=== PATIENT | male | born 1995 | race Caucasian/White ===

== ENCOUNTER 2019-04-03 20:44 | Emergency (ER) | payer OTHER ==
[2019-04-03] MEDS ORDERED: Sodium Chloride 0.9% 2.5 ML Syringe FLUSH PRN (21:13)
[2019-04-03] MEDS ORDERED: Ondansetron 4 MG/2 ML SDV IVPUSH ONE (21:13)
[2019-04-03] MEDS ORDERED: Pantoprazole 40 MG Vial IVPUSH ONE (21:13)
[2019-04-03] MEDS ORDERED: Sodium Chloride 0.9% 1,000 ML IV ONE (21:13)
[2019-04-03] MEDS ORDERED: Sodium Chloride 0.9% 10 ML Syringe FLUSH PRN (21:13)
[2019-04-03] MEDS ORDERED: Alum Hydrox/Mag Hydrox/Simeth 15 ML, Metoclopramide 5 MG, Lidocaine 2% 5 ML PO ONE ×3 (21:14)
--- NOTE | 2019-04-03 21:18 | EDM.PDOC ---
ED HPI GENERAL MEDICAL PROBLEM - General Chief Complaint: Gastrointestinal Problem Stated Complaint: PUKING BLOOD Time Seen by Provider: 04/03/19 21:07 - History of Present Illness INITIAL COMMENTS - FREE TEXT/NARRATIVE: HISTORY AND PHYSICAL: History of present illness: The patient is a 23-year-old male with no GI history and no abdominal surgical history who presents with complaints of several episodes of vomiting after drinking alcohol tonight. The patient admits that he drinks on a nightly basis and intermittently will have abdominal pain but has never vomited with blood. This evening he was drinking whiskey and on his second or third drink he had an episode of vomiting which was not black or bloody and then the second had blood in it and the third had some dark stuff. Currently he doesn't feel nauseated and has no abdominal pain. He has no chest pain or shortness of breath and says he had a normal day earlier without any systemic issues. He has not had black or bloody stools and has no diarrhea. The patient also admitted that he did "a little cocaine" but doesn't do it on a regular basis. He is not lightheaded dizzy. He does admits that he drinks caffeinated products during the day and eats a lot of spicy foods. He has never been evaluated for abdominal problems. Review of systems: As per history of present illness and below otherwise all systems reviewed and negative. Past medical history: As per history of present illness and as reviewed below otherwise noncontributory. Surgical history: As per history of present illness and as reviewed below otherwise noncontributory. Social history: No reported history of drug or alcohol abuse. Family history: As per history of present illness and as reviewed below otherwise noncontributory. Physical exam: General: Well-developed well-nourished man who is nontoxic and vital signs are noted by me. Patient is speaking clearly and easily in the ED and exhibits no distress. HEENT: Atraumatic, normocephalic, pupils reactive, negative for conjunctival pallor or scleral icterus, mucous membranes moist, throat clear, neck supple, nontender, trachea midline. Lungs: Clear to auscultation, breath sounds equal bilaterally, chest nontender. Heart: S1S2, regular, negative for clicks, rubs, or JVD. Abdomen: Soft, nondistended, nontender. Negative for masses or hepatosplenomegaly. Negative for costovertebral tenderness. On deep palpation of the upper abdomen there is actually no tenderness rebound or guarding and bowel sounds are normoactive Pelvis: Stable nontender. Genitourinary: Deferred. Rectal: Deferred. Extremities: Atraumatic, negative for cords or calf pain. Neurovascular unremarkable. Neuro: Awake, alert, oriented. Cranial nerves II through XII unremarkable. Cerebellum unremarkable. Motor and sensory unremarkable throughout. Exam nonfocal. Diagnostics: CBC CMP INR amylase lipase Therapeutics: IV fluids Zofran and Protonix GI cocktail Repeat heart rate is in the 70s and we are currently awaiting the remainder of his test results for disposition Testing results were discussed with the patient and I will give him Protonix for home but I did caution him to try to avoid irritating liquids such as alcohol and caffeine as well as reduce food intake of spicy foods and I've advised follow-up as he may need endoscopy going forward if he continues to have symptoms. Impression: Alcohol gastritis with episode of hematemesis stable Definitive disposition and diagnosis as appropriate pending reevaluation and review of above. - Related Data Allergies Allergy/AdvReac Type Severity Reaction Status Date / Time No Known Allergies Allergy Verified 04/03/19 20:53 Home Meds: Home Meds . [No Known Home Meds] 04/03/19 [History] Past Medical History - Past Health History Medical/Surgical History: Denies Medical/Surgical History - Infectious Disease History Infectious Disease History: Reports: Chicken Pox Social & Family History - Family History Family Medical History: Noncontributory - Tobacco Use Smoking Status *Q: Current Every Day Smoker Years of Tobacco use: 10 Packs/Tins Daily: 0.5 - Caffeine Use Caffeine Use: Reports: Energy Drinks - Recreational Drug Use Recreational Drug Use: Yes Drug Use in Last 12 Months: Yes Recreational Drug Type: Reports: Cocaine, Marijuana/Hashish Other Recreational Drug Type: Last used marijuana a couple days ago. Last used cocaine today. Recreational Drug Use Frequency: Weekly ED ROS GENERAL - Review of Systems Review Of Systems: ROS reveals no pertinent complaints other than HPI. ED EXAM, GENERAL - Physical Exam Exam: See Below (See dictation) Course - Vital Signs Last Recorded V/S: Last Vital Signs Temp 36.6 C 04/03/19 20:53 Pulse 78 04/03/19 22:00 Resp 17 04/03/19 20:53 BP 157/91 H 04/03/19 22:00 Pulse Ox 98 04/03/19 22:00 - Orders/Labs/Meds Orders: Active Orders 24 hr Category Date Time Status Sodium Chloride 0.9% [Saline Flush] Med 04/03/19 21:13 Active 10 ml FLUSH ASDIRECTED PRN Sodium Chloride 0.9% [Saline Flush] Med 04/03/19 21:13 Active 2.5 ml FLUSH ASDIRECTED PRN Saline Lock Insert [OM.PC] Stat Oth 04/03/19 21:13 Ordered Medication Orders Sodium Chloride (Saline Flush) 10 ml FLUSH ASDIRECTED PRN PRN Reason: Keep Vein Open Last Admin: 04/03/19 21:57 Dose: 10 ml Sodium Chloride (Saline Flush) 2.5 ml FLUSH ASDIRECTED PRN PRN Reason: Keep Vein Open Last Admin: 04/03/19 21:57 Dose: 2.5 ml Labs: Laboratory Tests 04/03/19 04/03/19 04/03/19 Range/Units 21:43 21:43 21:43 WBC 7.96 (4.0-11.0) K/uL RBC 5.12 (4.50-5.90) M/uL Hgb 15.3 (13.0-17.0) g/dL Hct 44.9 (38.0-50.0) % MCV 87.7 (80.0-98.0) fL MCH 29.9 (27.0-32.0) pg MCHC 34.1 (31.0-37.0) g/dL RDW Std Deviation 41.3 (28.0-62.0) fl RDW Coeff of Lanette 13 (11.0-15.0) % Plt Count 233 (150-400) K/uL MPV 10.20 (7.40-12.00) fL Neut % (Auto) 59.4 (48.0-80.0) % Lymph % (Auto) 31.5 (16.0-40.0) % [place] % (Auto) 7.4 (0.0-15.0) % Eos % (Auto) 1.4 (0.0-7.0) % Baso % (Auto) 0.3 (0.0-1.5) % Neut # (Auto) 4.7 (1.4-5.7) K/uL Lymph # (Auto) 2.5 H (0.6-2.4) K/uL [place] # (Auto) 0.6 (0.0-0.8) K/uL Eos # (Auto) 0.1 (0.0-0.7) K/uL Baso # (Auto) 0.0 (0.0-0.1) K/uL Nucleated RBC % 0.0 /100WBC Nucleated RBCs # 0 K/uL INR 0.96 Sodium 142 (136-148) mmol/L Potassium 3.3 L (3.5-5.1) mmol/L Chloride 103 (98-107) mmol/L Carbon Dioxide 28.8 (21.0-32.0) mmol/L BUN 11 (7.0-18.0) mg/dL Creatinine 1.1 (0.8-1.3) mg/dL Est Cr Clr Drug Dosing 112.68 mL/min Estimated GFR (MDRD) > 60.0 ml/min Glucose 99 (74-106) mg/dL Calcium 9.1 (8.5-10.1) mg/dL Total Bilirubin 0.3 (0.2-1.0) mg/dL AST 30 (15-37) IU/L ALT 26 (14-63) IU/L Alkaline Phosphatase 93 (46-116) U/L Total Protein 7.9 (6.4-8.2) g/dL Albumin 4.1 (3.4-5.0) g/dL Globulin 3.8 (2.6-4.0) g/dL Albumin/Globulin Ratio 1.1 (0.9-1.6) Amylase 29 (25-115) U/L Lipase 99 (73-393) U/L Meds: Medications Generic Name Dose Route Start Last Admin Trade Name Freq PRN Reason Stop Dose Admin Sodium Chloride 10 ml 04/03/19 21:13 04/03/19 21:57 Saline Flush FLUSH 10 ml ASDIRECTED PRN Administration Keep Vein Open Sodium Chloride 2.5 ml 04/03/19 21:13 04/03/19 21:57 Saline Flush FLUSH 2.5 ml ASDIRECTED PRN Administration Keep Vein Open Discontinued Medications Generic Name Dose Route Start Last Admin Trade Name Freq PRN Reason Stop Dose Admin Al Hydroxide/Mg Hydroxide 15 0 ml 04/03/19 21:14 04/03/19 21:58 ml/ Metoclopramide HCl 5 mg/ PO 04/03/19 21:15 1 each Lidocaine HCl 5 ml ONETIME ONE Administration Sodium Chloride 1,000 mls @ 999 mls/hr 04/03/19 21:13 04/03/19 21:43 Normal Saline IV 04/03/19 22:13 999 mls/hr STAT ONE Administration Sodium Chloride Confirm 04/03/19 21:34 Normal Saline Administered 04/03/19 21:35 Dose 20 mls @ as directed .ROUTE .STK-MED ONE Ondansetron HCl 4 mg 04/03/19 21:13 04/03/19 21:43 Zofran IVPUSH 04/03/19 21:14 4 mg ONETIME ONE Administration Pantoprazole Sodium 80 mg 04/03/19 21:13 04/03/19 21:48 Protonix Iv IVPUSH 04/03/19 21:14 80 mg .BOLUS ONE Administration Departure - Departure Time of Disposition: 22:33 Disposition: Home, Self-Care 01 Condition: Good Clinical Impression: Acute alcoholic gastritis Qualifiers: Gastritis bleeding: with bleeding Qualified Code(s): K29.21 - Alcoholic gastritis with bleeding - Discharge Information Referrals: PCP,None [Primary Care Provider] - Forms: ED Department Discharge Additional Instructions: The following information is given to patients seen in the emergency department who are being discharged to home. This information is to outline your options for follow-up care. We provide all patients seen in our emergency department with a follow-up referral. The need for follow-up, as well as the timing and circumstances, are variable depending upon the specifics of your emergency department visit. If you don't have a primary care physician on staff, we will provide you with a referral. We always advise you to contact your personal physician following an emergency department visit to inform them of the circumstance of the visit and for follow-up with them and/or the need for any referrals to a consulting specialist. The emergency department will also refer you to a specialist when appropriate. This referral assures that you have the opportunity for followup care with a specialist. All of these measure are taken in an effort to provide you with optimal care, which includes your followup. Under all circumstances we always encourage you to contact your private physician who remains a resource for coordinating your care. When calling for followup care, please make the office aware that this follow-up is from your recent emergency room visit. If for any reason you are refused follow-up, please contact the [facility] emergency department at and ask to speak to the emergency department charge nurse. [facility] Primary care- Internal Medicine and Family [facility] [address] [place] [id number] [facility] Specialty Care-General Surgery Professional Building [address] [facility] [address] [place] [address] Push hydration and avoid caffeinated products alcohol as well as spicy foods as all of these substances irritate your stomach and he wanted to give yourself some time to heal. Use the Protonix you have been prescribed daily as well as Zofran as needed for nausea and vomiting. Please call and schedule a follow-up appointment with primary care or with our surgeons if these symptoms persist for further testing and care. Return to ER as needed and as discussed - My Orders Last 24 Hours: My Active Orders 04/03/19 21:13 Sodium Chloride 0.9% [Saline Flush] 10 ml FLUSH ASDIRECTED PRN Sodium Chloride 0.9% [Saline Flush] 2.5 ml FLUSH ASDIRECTED PRN Saline Lock Insert [OM.PC] Stat - Assessment/Plan Last 24 Hours: My Active Orders 04/03/19 21:13 Sodium Chloride 0.9% [Saline Flush] 10 ml FLUSH ASDIRECTED PRN Sodium Chloride 0.9% [Saline Flush] 2.5 ml FLUSH ASDIRECTED PRN Saline Lock Insert [OM.PC] Stat
[2019-04-03] MEDS ORDERED: Sodium Chloride 0.9% 20 ML ONE (21:34)
[2019-04-03 22:27] LABS: BLOOD UREA NITROGEN,BUN 11 mg/dL (7.0-18.0); CARBON DIOXIDE,CO2 28.8 mmol/L (21.0-32.0); CHLORIDE,CL 103 mmol/L (98-107); GLUCOSE RANDOM 99 mg/dL (74-106); LIPASE 99 U/L (73-393); POTASSIUM,K 3.3 mmol/L (3.5-5.1); SODIUM,NA 142 mmol/L (136-148)
[2019-04-03 22:29] VITALS: BP 157/91; PULSE 78
== END 2019-04-03 22:58 | disposition home or self-care (01) ==
LOC: MW.ED 20:44
DX: K29.21 Alcoholic gastritis with bleeding (principal); K92.0 Hematemesis; F17.210 Nicotine dependence, cigarettes, uncomplicated
CPT/HCPCS: 36415; 80053; 82150; 83690; 85025; 85610; 96361; 96374; 96375; 99284; A9270; C9113; J2405; J7040